=== PATIENT | female | born 1980 | race African-American/Black ===

== ENCOUNTER 2017-08-09 20:20 | Emergency (ER) | payer MEDICAID ==
[~2017-08-09] VITALS: Ht 170.2 cm; Wt 82.0 kg
[2017-08-09 23:08] VITALS: BP 135/97
[2017-08-10] MEDS ORDERED: BENZONATATE 100MG CAPSULE PO ONE (00:15)
== END 2017-08-10 00:29 | disposition home or self-care (01) ==
LOC: ER 21:45
DX: J02.9 Acute pharyngitis, unspecified (principal)
CPT/HCPCS: 81025; 99283

== ENCOUNTER 2018-01-07 21:39 | Emergency (ER) | payer MEDICAID, OTHER ==
[~2018-01-07] VITALS: Ht 170.2 cm; Wt 82.4 kg
[2018-01-07 22:06] VITALS: BP 144/68
== END 2018-01-08 03:25 | disposition left against medical advice (07) ==
LOC: ER 21:39
DX: R07.9 Chest pain, unspecified (principal)
CPT/HCPCS: 93005; 99283

== ENCOUNTER 2019-02-19 20:30 | Emergency (ER) | payer SELFPAY ==
[~2019-02-19] VITALS: Ht 170.2 cm; Wt 86.0 kg
[2019-02-19 21:35] VITALS: BP 155/87
== END 2019-02-19 23:15 | disposition left against medical advice (07) ==
LOC: ER 20:30
DX: R21 Rash and other nonspecific skin eruption (principal); Z53.21 Procedure and treatment not carried out due to patient leaving prior to being seen by health care provider